=== PATIENT | male | born 1950 ===

== ENCOUNTER 2024-08-23 18:10 | Outpatient (REF) | payer SELFPAY ==
[2024-08-23 18:31] LABS: Anion Gap 14.5; BUN Creatinine Ratio 19.3; Chloride 101 mmol/L (98-107); Estimated GFR (African America 26 (>=60 mL/min/1.73m^2); Estimated GFR (Non-African Ame 21 (>=60 mL/min/1.73m^2); Glucose 119 mg/dL (74-106); Potassium 3.5 mmol/L (3.5-5.1); Sodium 141 mmol/L (136-145)
== END 2024-08-23 18:11 | disposition home or self-care (01) ==
LOC: LAB 18:10
PROVIDERS: Visit Provider Family Medicine
DX: E87.6 Hypokalemia (principal)
CPT/HCPCS: 36415; 80048